=== PATIENT | male | born 2000 | race African-American/Black ===

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

== ENCOUNTER 2019-06-08 21:00 | Emergency (ER) | payer MEDICAID ==
[2019-06-08 21:17] VITALS: BP 129/54
--- NOTE | 2019-06-08 21:49 | ER Document Report ---
ED Medical Screen (RME) - General Chief Complaint: Hand Injury Stated Complaint: LEFT HAND INJURY Time Seen by Provider: 06/08/19 21:46 Primary Care Provider: TAWANA PULLIAM MD [Primary Care Provider] - Follow up as needed Mode of Arrival: Ambulatory Information source: Patient Notes: His 19-year-old male presents with complaints of left fifth finger injury. Reports he jammed it playing basketball. Cap refill less than 2 seconds. Finger appears to be dislocated PIP. Patient reports he did try to pop it in place without success. I have greeted and performed a rapid initial assessment of this patient. A comprehensive ED assessment and evaluation of the patient, analysis of test results and completion of the medical decision making process will be conducted by additional ED providers. TRAVEL OUTSIDE OF THE [place] IN LAST 30 DAYS: No - Related Data Allergies/Adverse Reactions: No Known Allergies Allergy (Unverified 06/08/19 21:45) Past Medical History Pulmonary Medical History: Reports: Hx Asthma Neurological Medical History: Reports: Hx Migraine Renal/ Medical History: Denies: Hx Peritoneal Dialysis Physical Exam - Vital signs Vitals: Temp Pulse Resp BP Pulse Ox 98.8 F 93 18 129/54 H 98 06/08/19 21:16 06/08/19 21:16 06/08/19 21:16 06/08/19 21:16 06/08/19 21:16 Course - Vital Signs Vital signs: Temp Pulse Resp BP Pulse Ox 98.8 F 93 18 129/54 H 98 06/08/19 21:16 06/08/19 21:16 06/08/19 21:16 06/08/19 21:16 06/08/19 21:16 Doctor's Discharge - Discharge Referrals: TAWANA PULLIAM MD [Primary Care Provider] - Follow up as needed
--- NOTE | 2019-06-08 22:33 | RADIOLOGY REPORT (SQ) ---
EXAM DESCRIPTION: XR FINGERS COMPLETED DATE/TME: 06/08/2019 21:47 CLINICAL HISTORY: 19 years, Male, jammed 5th finger COMPARISON: None. NUMBER OF VIEWS: 3 TECHNIQUE: AP, oblique and lateral radiographs of the fifth digit of the left hand were obtained. The AP radiograph includes the entire hand and wrist. LIMITATIONS: None. FINDINGS: There is an avulsion chip fracture off the dorsomedial base of the fifth middle phalanx resulting in a mild flexion deformity of the proximal interphalangeal joint. No dislocation but there is slight volar subluxation of the proximal interphalangeal joint. There is widening of the scapholunate space. No other abnormalities are identified radiographically. IMPRESSION: 1. Avulsion fracture of the dorsomedial base of the fifth middle phalanx, probably acute, with slight volar subluxation at the proximal interphalangeal joint. 2. Scapholunate dissociation compatible with a tear of the scapholunate ligament, probably old. copyright 2010 [employer]- All Rights Reserved
== END 2019-06-08 23:40 | disposition left against medical advice (07) ==
LOC: ER 21:00
DX: S69.92XA Unspecified injury of left wrist, hand and finger(s), initial encounter (principal); X58.XXXA Exposure to other specified factors, initial encounter; Y93.67 Activity, basketball; J45.909 Unspecified asthma, uncomplicated; Z53.20 Procedure and treatment not carried out because of patient's decision for unspecified reasons
CPT/HCPCS: 99281